=== PATIENT | male | born 1935 | race Caucasian/White ===

== ENCOUNTER 2017-01-16 07:16 | Emergency (ER) | payer OTHER ==
[~2017-01-16] VITALS: Ht 182.9 cm; Wt 93.2 kg
[2017-01-16 08:25] LABS: BASOPHIL COUNT 0.1 K/uL (0-0.1); EOSINOPHIL COUNT 0.1 K/uL (0-0.3); HEMATOCRIT 37.3 % (38.0-50.0); IMMATURE GRANULOCYTE (%) 0.5 % (0.0-0.7); IMMATURE GRANULOCYTE COUNT 0.1 K/uL; LYMPHOCYTE COUNT 1.6 K/uL (1.0-2.8); MCH 29.9 PG (29.0-34.0); MCHC 32.2 G/DL (30.0-36.0); MCV 92.8 FL (86-99); MEAN PLAT.VOLUME 10.3 uM^3 (9.0-12.4); MONOCYTE (%) 7.6 % (3-12); MONOCYTE COUNT 0.8 K/uL (0-0.8); NEUTROPHIL (%) 75.7 % (45-76); PLATELET COUNT 224 K/uL (156-360); RBC DIS.WIDTH-CV 14.4 % (11.8-14.6); RBC DIS.WIDTH-SD 49.3 % (39-53); RED BLOOD COUNT 4.02 M/uL (4.00-5.50); WHITE BLOOD COUNT 10.5 K/uL (4.1-10.2)
[2017-01-16 08:36] LABS: PTT 51.4 SEC (25-37)
[2017-01-16 08:40] LABS: PROTHROMBIN TIME 54.7 SEC (10.2-12.9)
[2017-01-16 08:41] LABS: INTER. NORMALIZED RATIO 4.7
[2017-01-16 08:46] LABS: TROP-I INTERPRETATION NEGATIVE; TROPONIN-I < 0.01 ng/mL (0.0-0.30)
[2017-01-16 08:49] LABS: CHLORIDE 109 mEq/L (99-109); SODIUM 141 mEq/L (136-147)
[2017-01-16 08:50] LABS: GLUCOSE 221 mg/dL (70-99)
[2017-01-16 08:52] LABS: ANION GAP 9 MEQ/L (2-14)
[2017-01-16 08:54] LABS: GFR ESTIMATE (CALCULATED) 20 mL/min/
[2017-01-16 08:55] LABS: UREA NITROGEN (BUN) 44 mg/dL (9-23)
[2017-01-16 12:08] LABS: TROP-I INTERPRETATION NEGATIVE; TROPONIN-I < 0.01 ng/mL (0.0-0.30)
[2017-01-16 13:16] VITALS: BP 112/80
== END 2017-01-16 13:42 | disposition home or self-care (01) ==
LOC: EME 07:16
PROVIDERS: Emergency Medicine
DX: J90 Pleural effusion, not elsewhere classified (principal); J44.1 Chronic obstructive pulmonary disease with (acute) exacerbation; E11.9 Type 2 diabetes mellitus without complications; E78.5 Hyperlipidemia, unspecified; I10 Essential (primary) hypertension; I25.2 Old myocardial infarction; N28.9 Disorder of kidney and ureter, unspecified
CPT/HCPCS: 71010; 71250; 80048; 84484; 85025; 85610; 85730; 93005; 99281; 99284

== ENCOUNTER 2017-05-14 02:17 | Inpatient (IN) | payer OTHER ==
[~2017-05-14] VITALS: Ht 182.9 cm; Wt 82.7 kg
[2017-05-14 02:54] LABS: BASOPHIL COUNT 0.1 K/uL (0-0.1); EOSINOPHIL (%) 1.3 % (0-5); EOSINOPHIL COUNT 0.1 K/uL (0-0.3); HEMATOCRIT 34.8 % (38.0-50.0); IMMATURE GRANULOCYTE (%) 0.5 % (0.0-0.7); INSTRUMENT ABS NEUTROPHIL CT 5.9 K/uL; LYMPHOCYTE COUNT 0.8 K/uL (1.0-2.8); MCHC 31.3 G/DL (30.0-36.0); MCV 83.1 FL (86-99); MEAN PLAT.VOLUME 9.7 uM^3 (9.0-12.4); MONOCYTE (%) 8.7 % (3-12); MONOCYTE COUNT 0.7 K/uL (0-0.8); NEUTROPHIL (%) 77.9 % (45-76); NEUTROPHIL COUNT 5.9 K/uL (1.8-6.4); NRBC (%) 0.3 /100 WBC (0-0); PLATELET COUNT 165 K/uL (156-360); RBC DIS.WIDTH-SD 59.4 % (39-53); RED BLOOD COUNT 4.19 M/uL (4.00-5.50); WHITE BLOOD COUNT 7.6 K/uL (4.1-10.2)
[2017-05-14 03:09] LABS: INTER. NORMALIZED RATIO 4.1; PROTHROMBIN TIME 46.6 SEC (10.2-12.9)
[2017-05-14 03:11] LABS: CHLORIDE 108 mEq/L (99-109); POTASSIUM 5.1 mEq/L (3.7-5.4); SODIUM 141 mEq/L (136-147)
[2017-05-14 03:12] LABS: MAGNESIUM 1.5 mg/dL (1.3-2.7); PTT 44.5 SEC (25-37)
[2017-05-14 03:14] LABS: GLUCOSE 148 mg/dL (70-99)
[2017-05-14 03:15] LABS: ANION GAP 17 MEQ/L (2-14)
[2017-05-14 03:17] LABS: ALKALINE PHOSPHATASE 219 IU/L (3-129)
[2017-05-14 03:18] LABS: GFR ESTIMATE (CALCULATED) 11 mL/min/
[2017-05-14 03:19] LABS: UREA NITROGEN (BUN) 85 mg/dL (9-23)
[2017-05-14 03:27] LABS: TROP-I INTERPRETATION NEGATIVE; TROPONIN-I 0.04 ng/mL (0.0-0.30)
[2017-05-14] MEDS ORDERED: COUMADIN1 MG PO (06:07)
[2017-05-14] MEDS ORDERED: VITAMIN B COMP1 EACH PO (06:08)
[2017-05-14] MEDS ORDERED: FOLIC ACID1 MG PO (06:08)
[2017-05-14 09:44] LABS: MAGNESIUM 1.7 mg/dL (1.3-2.7)
[2017-05-14 09:51] LABS: URIC ACID 9.3 mg/dL (3.1-9.2)
[2017-05-14 10:22] LABS: Estimated Average Glucose 154 mg/dL (70-123)
[2017-05-14] MEDS ORDERED: FUROSEMIDE40 MG PO (11:45)
[2017-05-14] MEDS ORDERED: METOPROLOL SUC100 MG PO (11:53)
[2017-05-14 18:45] LABS: POINT-OF-CARE METER ID UU14100415
[2017-05-14 19:35] VITALS: BP 86/68
[2017-05-14 20:39] VITALS: BP 103/57
[2017-05-14 21:22] LABS: POINT-OF-CARE METER ID UU14100415
[2017-05-14 23:09] VITALS: BP 97/59
[2017-05-15 01:41] VITALS: BP 98/58
[2017-05-15 04:00] VITALS: BP 91/56
[2017-05-15 05:49] LABS: INTER. NORMALIZED RATIO 4.1; PROTHROMBIN TIME 47.3 SEC (10.2-12.9)
[2017-05-15 07:20] VITALS: BP 94/60
[2017-05-15 07:27] LABS: ANION GAP ND MEQ/L (2-14); CHLORIDE 106 MEQ/L (99-109); POTASSIUM 4.3 MEQ/L (3.7-5.4); SAMPLE HEMOLYSIS CHECK 0; SAMPLE ICTERIC CHECK 0; SAMPLE LIPEMIA CHECK 0; SODIUM 137 MEQ/L (136-147); UREA NITROGEN (BUN) 85 mg/dL (9-23)
[2017-05-15 07:28] LABS: GLUCOSE 101 mg/dL (70-99)
[2017-05-15 08:05] LABS: GFR ESTIMATE (CALCULATED) 13 mL/min/
[2017-05-15 08:23] LABS: POINT-OF-CARE METER ID UU14174216
[2017-05-15 11:39] VITALS: BP 85/55
[2017-05-15 11:52] LABS: POINT-OF-CARE METER ID UU14174216
[2017-05-15 16:31] LABS: POINT-OF-CARE METER ID UU13113698
[2017-05-15 17:07] VITALS: BP 91/57
[2017-05-15 20:21] VITALS: BP 92/59
[2017-05-15 21:20] LABS: POINT-OF-CARE METER ID UU14314088
[2017-05-16] VITALS (8 sets, daily range): BP systolic 86–166; BP diastolic 57–89
[2017-05-16 06:08] LABS: ANION GAP 12 MEQ/L (2-14); CHLORIDE 107 MEQ/L (99-109); GFR ESTIMATE (CALCULATED) 12 mL/min/; GLUCOSE 109 mg/dL (70-99); POTASSIUM 4.7 MEQ/L (3.7-5.4); SAMPLE HEMOLYSIS CHECK 0; SAMPLE ICTERIC CHECK 0; SAMPLE LIPEMIA CHECK 0; SODIUM 137 MEQ/L (136-147); UREA NITROGEN (BUN) 84 mg/dL (9-23)
[2017-05-16 08:00] LABS: POINT-OF-CARE METER ID UU13113698
[2017-05-16 11:25] LABS: POINT-OF-CARE METER ID UU13113781
[2017-05-16 16:51] LABS: POINT-OF-CARE METER ID UU14314088
[2017-05-16 22:06] LABS: POINT-OF-CARE METER ID UU14314088
[2017-05-17] VITALS (7 sets, daily range): BP systolic 71–101; BP diastolic 58–64
[2017-05-17 04:56] LABS: INTER. NORMALIZED RATIO 2.5; PROTHROMBIN TIME 27.9 SEC (10.2-12.9)
[2017-05-17 05:12] LABS: ANION GAP 14 MEQ/L (2-14); CHLORIDE 105 MEQ/L (99-109); GFR ESTIMATE (CALCULATED) 11 mL/min/; GLUCOSE 114 mg/dL (70-99); IRON 18 MCG/DL (35-150); POTASSIUM 4.6 MEQ/L (3.7-5.4); SAMPLE HEMOLYSIS CHECK 0; SAMPLE ICTERIC CHECK 0; SAMPLE LIPEMIA CHECK 0; SODIUM 135 MEQ/L (136-147); UREA NITROGEN (BUN) 87 mg/dL (9-23)
[2017-05-17 08:03] LABS: POINT-OF-CARE METER ID UU14174216
[2017-05-17 09:03] LABS: INTACT PARATHYROID HORMONE 138 pg/mL (10-69)
[2017-05-17 09:20] LABS: FERRITIN 54 NG/ML (22-322)
[2017-05-17 11:52] LABS: POINT-OF-CARE METER ID UU14314088
[2017-05-17 16:20] LABS: POINT-OF-CARE METER ID UU13113698
[2017-05-17 16:38] LABS: ADD MIUA? YES; BILIRUBIN NEGATIVE; BLOOD NEGATIVE; COLOR AMBER ((YELLOW)); GLUCOSE (STRIP) NEGATIVE; KETONES NEGATIVE; LEUKOCYTES NEGATIVE; NITRITE NEGATIVE; PROTEIN (STRIP) 100; SPECIFIC GRAVITY 1.016 (1.000-1.030)
[2017-05-17 16:50] LABS: BACTERIA NONE SEEN /HPF; EPITHELIAL CELLS NONE SEEN /HPF; MUCUS TRACE /LPF; RED BLOOD CELLS 0-5 /HPF (0-5); UCUL ADDED? NO; WHITE BLOOD CELLS 0-5 /HPF (0-5)
[2017-05-17 21:42] LABS: POINT-OF-CARE METER ID UU13113698
[2017-05-18 04:00] VITALS: BP 95/50
[2017-05-18 05:26] LABS: BASOPHIL COUNT 0.1 K/uL (0-0.1); EOSINOPHIL (%) 2.6 % (0-5); EOSINOPHIL COUNT 0.2 K/uL (0-0.3); HEMATOCRIT 31.1 % (38.0-50.0); IMMATURE GRANULOCYTE (%) 0.6 % (0.0-0.7); LYMPHOCYTE COUNT 1.5 K/uL (1.0-2.8); MCH 25.5 PG (29.0-34.0); MCHC 30.9 G/DL (30.0-36.0); MCV 82.5 FL (86-99); MEAN PLAT.VOLUME 10.7 uM^3 (9.0-12.4); MONOCYTE (%) 10.2 % (3-12); MONOCYTE COUNT 0.7 K/uL (0-0.8); NEUTROPHIL (%) 62.6 % (45-76); NRBC (%) 0.3 /100 WBC (0-0); PLATELET COUNT 148 K/uL (156-360); RBC DIS.WIDTH-CV 19.4 % (11.8-14.6); RBC DIS.WIDTH-SD 58.4 % (39-53); RED BLOOD COUNT 3.77 M/uL (4.00-5.50); WHITE BLOOD COUNT 6.4 K/uL (4.1-10.2)
[2017-05-18 05:32] LABS: INTER. NORMALIZED RATIO 2.4; PROTHROMBIN TIME 27.8 SEC (10.2-12.9)
[2017-05-18 06:02] LABS: ALKALINE PHOSPHATASE 200 IU/L (3-129); ANION GAP 14 MEQ/L (2-14); CHLORIDE 102 MEQ/L (99-109); GFR ESTIMATE (CALCULATED) 11 mL/min/; GLUCOSE 104 mg/dL (70-99); POTASSIUM 4.8 MEQ/L (3.7-5.4); SAMPLE HEMOLYSIS CHECK 0; SAMPLE ICTERIC CHECK 0; SAMPLE LIPEMIA CHECK 0; SODIUM 135 MEQ/L (136-147); UREA NITROGEN (BUN) 98 mg/dL (9-23)
[2017-05-18 07:10] VITALS: BP 91/63
[2017-05-18 07:26] LABS: POINT-OF-CARE METER ID UU14174216
[2017-05-18 11:09] LABS: POINT-OF-CARE METER ID UU13113698
[2017-05-18 11:11] VITALS: BP 80/59
[2017-05-18 15:15] VITALS: BP 82/60
[2017-05-18 16:48] LABS: POINT-OF-CARE METER ID UU13113698
[2017-05-18 19:00] VITALS: BP 82/50
[2017-05-18 21:05] LABS: POINT-OF-CARE METER ID UU14174216
[2017-05-18 23:00] VITALS: BP 90/62
[2017-05-19] VITALS (7 sets, daily range): BP systolic 82–100; BP diastolic 50–66
[2017-05-19 06:04] LABS: BASOPHIL COUNT 0.1 K/uL (0-0.1); EOSINOPHIL (%) 3.5 % (0-5); EOSINOPHIL COUNT 0.2 K/uL (0-0.3); HEMATOCRIT 31.5 % (38.0-50.0); IMMATURE GRANULOCYTE (%) 0.5 % (0.0-0.7); INSTRUMENT ABS NEUTROPHIL CT 4.2 K/uL; LYMPHOCYTE COUNT 1.2 K/uL (1.0-2.8); MCH 25.7 PG (29.0-34.0); MCHC 31.1 G/DL (30.0-36.0); MCV 82.5 FL (86-99); MEAN PLAT.VOLUME 9.6 uM^3 (9.0-12.4); MONOCYTE COUNT 0.6 K/uL (0-0.8); NEUTROPHIL COUNT 4.2 K/uL (1.8-6.4); NRBC (%) 0.3 /100 WBC (0-0); PLATELET COUNT 140 K/uL (156-360); RBC DIS.WIDTH-CV 19.4 % (11.8-14.6); RBC DIS.WIDTH-SD 57.3 % (39-53); RED BLOOD COUNT 3.82 M/uL (4.00-5.50); WHITE BLOOD COUNT 6.3 K/uL (4.1-10.2)
[2017-05-19 06:43] LABS: ALKALINE PHOSPHATASE 196 IU/L (3-129); ANION GAP 13 MEQ/L (2-14); CHLORIDE 103 MEQ/L (99-109); GFR ESTIMATE (CALCULATED) 12 mL/min/; GLUCOSE 114 mg/dL (70-99); POTASSIUM 4.7 MEQ/L (3.7-5.4); SAMPLE HEMOLYSIS CHECK 0; SAMPLE ICTERIC CHECK 0; SAMPLE LIPEMIA CHECK 0; SODIUM 134 MEQ/L (136-147); TOTAL BILIRUBIN 0.9 MG/DL (0.0-1.0)
[2017-05-19 06:53] LABS: INTER. NORMALIZED RATIO 2.6; PROTHROMBIN TIME 29.7 SEC (10.2-12.9)
[2017-05-19 06:56] LABS: UREA NITROGEN (BUN) 105 mg/dL (9-23)
[2017-05-19 08:15] LABS: POINT-OF-CARE METER ID UU13113781
[2017-05-19 11:28] LABS: POINT-OF-CARE METER ID UU13113781
[2017-05-19 15:46] LABS: POINT-OF-CARE METER ID UU13113781
[2017-05-19 18:19] LABS: INTERNAL CONTROL VALID? YES
[2017-05-19 21:05] LABS: POINT-OF-CARE METER ID UU14174216
[2017-05-20] VITALS (8 sets, daily range): BP systolic 76–91; BP diastolic 50–60
[2017-05-20 06:15] LABS: INTER. NORMALIZED RATIO 2.2
[2017-05-20 06:19] LABS: EOSINOPHIL (%) 4.4 % (0-5); EOSINOPHIL COUNT 0.3 K/uL (0-0.3); HEMATOCRIT 30.8 % (38.0-50.0); IMMATURE GRANULOCYTE (%) 0.3 % (0.0-0.7); INSTRUMENT ABS NEUTROPHIL CT 3.8 K/uL; LYMPHOCYTE COUNT 1.1 K/uL (1.0-2.8); MCH 25.1 PG (29.0-34.0); MCHC 30.5 G/DL (30.0-36.0); MCV 82.4 FL (86-99); MEAN PLAT.VOLUME 10.9 uM^3 (9.0-12.4); MONOCYTE (%) 11.5 % (3-12); MONOCYTE COUNT 0.7 K/uL (0-0.8); NEUTROPHIL (%) 64.6 % (45-76); NEUTROPHIL COUNT 3.8 K/uL (1.8-6.4); PLATELET COUNT 167 K/uL (156-360); RBC DIS.WIDTH-CV 19.4 % (11.8-14.6); RBC DIS.WIDTH-SD 57.7 % (39-53); RED BLOOD COUNT 3.74 M/uL (4.00-5.50); WHITE BLOOD COUNT 5.9 K/uL (4.1-10.2)
[2017-05-20 06:37] LABS: ALKALINE PHOSPHATASE 191 IU/L (3-129); ANION GAP 11 MEQ/L (2-14); CHLORIDE 104 MEQ/L (99-109); GFR ESTIMATE (CALCULATED) 12 mL/min/ (58.99-99999); GLUCOSE 101 mg/dL (70-99); POTASSIUM 4.5 MEQ/L (3.7-5.4); SAMPLE HEMOLYSIS CHECK 0; SAMPLE ICTERIC CHECK 0; SAMPLE LIPEMIA CHECK 0; SODIUM 136 MEQ/L (136-147); UREA NITROGEN (BUN) 100 mg/dL (9-23)
[2017-05-20 08:03] LABS: POINT-OF-CARE METER ID UU14174216
[2017-05-20 10:57] LABS: POINT-OF-CARE METER ID UU14174216
[2017-05-20 16:10] LABS: POINT-OF-CARE METER ID UU14174216
[2017-05-20 21:08] LABS: POINT-OF-CARE METER ID UU13113781
[2017-05-21 04:23] VITALS: BP 87/54
[2017-05-21 05:47] LABS: EOSINOPHIL (%) 3.9 % (0-5); EOSINOPHIL COUNT 0.2 K/uL (0-0.3); HEMATOCRIT 30.6 % (38.0-50.0); IMMATURE GRANULOCYTE (%) 0.5 % (0.0-0.7); INSTRUMENT ABS NEUTROPHIL CT 3.5 K/uL; LYMPHOCYTE COUNT 1.2 K/uL (1.0-2.8); MCH 25.9 PG (29.0-34.0); MCHC 31.4 G/DL (30.0-36.0); MCV 82.5 FL (86-99); MEAN PLAT.VOLUME 9.4 uM^3 (9.0-12.4); MONOCYTE (%) 11.9 % (3-12); MONOCYTE COUNT 0.7 K/uL (0-0.8); NEUTROPHIL (%) 62.5 % (45-76); NEUTROPHIL COUNT 3.5 K/uL (1.8-6.4); NRBC (%) 0.4 /100 WBC (0-0); PLATELET COUNT 147 K/uL (156-360); RBC DIS.WIDTH-CV 19.9 % (11.8-14.6); RBC DIS.WIDTH-SD 57.8 % (39-53); RED BLOOD COUNT 3.71 M/uL (4.00-5.50); WHITE BLOOD COUNT 5.6 K/uL (4.1-10.2)
[2017-05-21 05:55] LABS: INTER. NORMALIZED RATIO 1.8; PROTHROMBIN TIME 20.6 SEC (10.2-12.9)
[2017-05-21 06:29] LABS: ALKALINE PHOSPHATASE 190 IU/L (3-129); ANION GAP 12 MEQ/L (2-14); CHLORIDE 104 MEQ/L (99-109); GFR ESTIMATE (CALCULATED) 12 mL/min/ (58.99-99999); GLUCOSE 102 mg/dL (70-99); POTASSIUM 4.6 MEQ/L (3.7-5.4); SAMPLE HEMOLYSIS CHECK 0; SAMPLE ICTERIC CHECK 0; SAMPLE LIPEMIA CHECK 0; SODIUM 137 MEQ/L (136-147); TOTAL BILIRUBIN 1.3 MG/DL (0.0-1.0); UREA NITROGEN (BUN) 99 mg/dL (9-23)
[2017-05-21 08:00] VITALS: BP 98/59
[2017-05-21 08:31] LABS: POINT-OF-CARE METER ID UU14174216; POINT-OF-CARE USER ID NUTSLF44
[2017-05-21 12:25] VITALS: BP 96/56
[2017-05-21 12:59] LABS: POINT-OF-CARE METER ID UU14314088; POINT-OF-CARE USER ID NUTSLF44
[2017-05-21 15:43] VITALS: BP 87/51
[2017-05-21 17:46] LABS: POINT-OF-CARE METER ID UU14314088; POINT-OF-CARE USER ID NUTSLF44
[2017-05-21 19:27] VITALS: BP 97/52
[2017-05-21 21:45] LABS: POINT-OF-CARE METER ID UU13113698
[2017-05-21 23:57] VITALS: BP 97/61
[2017-05-22 05:00] VITALS: BP 90/54
[2017-05-22 06:07] LABS: INTER. NORMALIZED RATIO 1.5; PROTHROMBIN TIME 17.4 SEC (10.2-12.9)
[2017-05-22 06:21] LABS: ANION GAP 12 MEQ/L (2-14); CHLORIDE 102 MEQ/L (99-109); GFR ESTIMATE (CALCULATED) 14 mL/min/ (58.99-99999); GLUCOSE 92 mg/dL (70-99); POTASSIUM 4.6 MEQ/L (3.7-5.4); SAMPLE HEMOLYSIS CHECK 0; SAMPLE ICTERIC CHECK 0; SAMPLE LIPEMIA CHECK 0; SODIUM 135 MEQ/L (136-147); UREA NITROGEN (BUN) 101 mg/dL (9-23)
[2017-05-22 07:47] LABS: POINT-OF-CARE METER ID UU13113781
[2017-05-22 08:00] VITALS: BP 107/70
[2017-05-22 11:50] LABS: POINT-OF-CARE METER ID UU14314088
[2017-05-22 11:56] VITALS: BP 85/52
[2017-05-22 16:15] VITALS: BP 88/52
[2017-05-22 16:43] LABS: POINT-OF-CARE METER ID UU14174216
[2017-05-22 19:45] VITALS: BP 83/53
[2017-05-22 21:19] LABS: POINT-OF-CARE METER ID UU14174216
[2017-05-22 23:36] VITALS: BP 95/64
[2017-05-23 04:46] VITALS: BP 99/68
[2017-05-23 06:15] LABS: HEMATOCRIT 32.1 % (38.0-50.0); MCH 25.4 PG (29.0-34.0); MCHC 30.5 G/DL (30.0-36.0); MCV 83.2 FL (86-99); MEAN PLAT.VOLUME 9.6 uM^3 (9.0-12.4); NRBC (%) 0.3 /100 WBC (0-0); PLATELET COUNT 134 K/uL (156-360); RBC DIS.WIDTH-CV 20.6 % (11.8-14.6); RBC DIS.WIDTH-SD 58.1 % (39-53); RED BLOOD COUNT 3.86 M/uL (4.00-5.50); WHITE BLOOD COUNT 6.3 K/uL (4.1-10.2)
[2017-05-23 06:47] LABS: ALKALINE PHOSPHATASE 174 IU/L (3-129); ANION GAP 11 MEQ/L (2-14); CHLORIDE 102 MEQ/L (99-109); GFR ESTIMATE (CALCULATED) 14 mL/min/ (58.99-99999); GLUCOSE 105 mg/dL (70-99); POTASSIUM 4.8 MEQ/L (3.7-5.4); SAMPLE HEMOLYSIS CHECK 0; SAMPLE ICTERIC CHECK 0; SAMPLE LIPEMIA CHECK 0; SODIUM 136 MEQ/L (136-147); TOTAL BILIRUBIN 1.3 MG/DL (0.0-1.0); UREA NITROGEN (BUN) 99 mg/dL (9-23)
[2017-05-23 06:48] LABS: INTER. NORMALIZED RATIO 1.5; PROTHROMBIN TIME 16.8 SEC (10.2-12.9)
[2017-05-23 06:58] LABS: BASOPHIL COUNT 0.1 K/uL (0-0.1); EOSINOPHIL (%) 3.5 % (0-5); EOSINOPHIL COUNT 0.2 K/uL (0-0.3); IMMATURE GRANULOCYTE (%) 0.5 % (0.0-0.7); INSTRUMENT ABS NEUTROPHIL CT 3.9 K/uL; LYMPHOCYTE COUNT 1.3 K/uL (1.0-2.8); MONOCYTE (%) 12.3 % (3-12); MONOCYTE COUNT 0.8 K/uL (0-0.8); NEUTROPHIL (%) 61.7 % (45-76); NEUTROPHIL COUNT 3.9 K/uL (1.8-6.4)
[2017-05-23 08:00] VITALS: BP 93/61
[2017-05-23 11:54] LABS: POINT-OF-CARE METER ID UU13113781
[2017-05-23 11:55] VITALS: BP 88/58
[2017-05-23] MEDS ORDERED: DUONEB 2.5-0.5 M3 ML AEROSOL (12:30)
[2017-05-23] MEDS ORDERED: NABI650T PO (12:32)
[2017-05-23] MEDS ORDERED: METOPROLOL SUCC25 MG PO (12:32)
[2017-05-23] MEDS ORDERED: BUMETANIDE1 MG PO (12:32)
[2017-05-23] MEDS ORDERED: DIGOXIN125 MCG PO (12:32)
[2017-05-23] MEDS ORDERED: HYDROCODON-ACE1 EAC7 PO (12:32)
[2017-05-23] MEDS ORDERED: DOCUSATE SODIU100 MG PO (12:33)
[2017-05-23] MEDS ORDERED: BISAC-EVAC10 MG PR (12:33)
[2017-05-23] MEDS ORDERED: NOVOLOG PE100 UNITS/ SC (12:33)
[2017-05-23] MEDS ORDERED: POLYETHYLENE GL17 GM PO (12:33)
[2017-05-23] MEDS ORDERED: PANTOPRAZOLE SO40 MG PO (12:33)
== END 2017-05-23 16:45 | DRG 309 ==
LOC: EME 02:17 → EDOF 07:59 → ENRESERV 08:00 → EDOF 08:03 → 4EAST 08:26 → ENRESERV 05-15 00:13 → 4EAST 05-15 01:02 → ENPENDDIS 05-23 → 4EAST 05-23 16:45
PROVIDERS: Emergency Medicine; Family Medicine; Hospitalist; Internal Medicine; Internal Medicine Nephrology
PROC: 0HQEXZZ Repair Left Lower Arm Skin, External Approach (ICD-10-PCS; principal; 2017-05-14)
DX: I48.1 Persistent atrial fibrillation (principal); N18.5 Chronic kidney disease, stage 5; I12.0 Hypertensive chronic kidney disease with stage 5 chronic kidney disease or end stage renal disease; N17.9 Acute kidney failure, unspecified; E87.2 Acidosis; I13.2 Hypertensive heart and chronic kidney disease with heart failure and with stage 5 chronic kidney disease, or end stage renal disease; K43.6 Other and unspecified ventral hernia with obstruction, without gangrene; D63.1 Anemia in chronic kidney disease; S51.812A Laceration without foreign body of left forearm, initial encounter; W01.198A Fall on same level from slipping, tripping and stumbling with subsequent striking against other object, initial encounter; D50.9 Iron deficiency anemia, unspecified; E11.22 Type 2 diabetes mellitus with diabetic chronic kidney disease; E78.5 Hyperlipidemia, unspecified; I25.10 Atherosclerotic heart disease of native coronary artery without angina pectoris; I25.5 Ischemic cardiomyopathy; I44.7 Left bundle-branch block, unspecified; I50.9 Heart failure, unspecified; K59.00 Constipation, unspecified; R79.1 Abnormal coagulation profile; T45.515A Adverse effect of anticoagulants, initial encounter; Z60.2 Problems related to living alone; H91.90 Unspecified hearing loss, unspecified ear; L89.320 Pressure ulcer of left buttock, unstageable; L89.310 Pressure ulcer of right buttock, unstageable; M53.3 Sacrococcygeal disorders, not elsewhere classified; I95.9 Hypotension, unspecified; R21 Rash and other nonspecific skin eruption; E87.79 Other fluid overload; Z95.810 Presence of automatic (implantable) cardiac defibrillator; Z95.1 Presence of aortocoronary bypass graft; Z87.891 Personal history of nicotine dependence; Z79.01 Long term (current) use of anticoagulants; Y93.E8 Activity, other personal hygiene; Y92.091 Bathroom in other non-institutional residence as the place of occurrence of the external cause; Z88.0 Allergy status to penicillin; Z82.49 Family history of ischemic heart disease and other diseases of the circulatory system
CPT/HCPCS: 71010; 80048; 80053; 80069; 80162; 81003; 82272; 82306; 82607; 82728; 82746; 82948; 83036; 83540; 83735; 83970; 84100; 84439; 84443; 84466; 84481; 84484; 84550; 85025; 85610; 85730; 87070; 87075; 87076; 87205; 93005; 93306; 97530 GP; 99202; 99281; 99285; A6212; J1160; J1756; J1815; J7040; J7050

== ENCOUNTER 2017-06-05 12:34 | Emergency (ER) | payer OTHER ==
[~2017-06-05] VITALS: Ht 182.9 cm; Wt 90.1 kg
[~2017-06-05 12:34] MED LIST: BISAC-EVAC10 MG PR; BUMETANIDE1 MG PO; COUMADIN1 MG PO; DIGOXIN125 MCG PO; DOCUSATE SODIU100 MG PO; DUONEB 2.5-0.5 M3 ML AEROSOL; FOLIC ACID1 MG PO; FUROSEMIDE40 MG PO; HYDROCODON-ACE1 EAC7 PO; METOPROLOL SUC100 MG PO; METOPROLOL SUCC25 MG PO; NABI650T PO; NOVOLOG PE100 UNITS/ SC; PANTOPRAZOLE SO40 MG PO; POLYETHYLENE GL17 GM PO; VITAMIN B COMP1 EACH PO
[2017-06-05] MEDS ORDERED: BACTRIM,SEPT1 TABLET PO (16:17)
[2017-06-05 18:37] VITALS: BP 129/78
== END 2017-06-05 18:37 ==
LOC: EME 12:34
DX: L03.114 Cellulitis of left upper limb (principal); R60.0 Localized edema; E78.5 Hyperlipidemia, unspecified; I10 Essential (primary) hypertension; I25.2 Old myocardial infarction; N28.9 Disorder of kidney and ureter, unspecified; Z95.1 Presence of aortocoronary bypass graft; Z87.891 Personal history of nicotine dependence; Z88.0 Allergy status to penicillin; Z88.1 Allergy status to other antibiotic agents
CPT/HCPCS: 93971; 99281; 99285

== ENCOUNTER 2017-06-10 02:42 | Emergency (ER) | payer OTHER ==
[~2017-06-10] VITALS: Ht 182.9 cm; Wt 88.1 kg
[~2017-06-10 02:42] MED LIST changes: +BACTRIM,SEPT1 TABLET PO
[2017-06-10 07:45] VITALS: BP 128/65
== END 2017-06-10 07:45 ==
LOC: EME → EDSEX 02:42 → EME 02:42 → EDBD 02:42 → EME 07:45
PROC: 0HQDXZZ Repair Right Lower Arm Skin, External Approach (ICD-10-PCS; principal; 2017-06-10)
DX: S01.81XA Laceration without foreign body of other part of head, initial encounter (principal); S51.811A Laceration without foreign body of right forearm, initial encounter; J90 Pleural effusion, not elsewhere classified; W05.0XXA Fall from non-moving wheelchair, initial encounter; Z79.01 Long term (current) use of anticoagulants; E78.5 Hyperlipidemia, unspecified; I25.2 Old myocardial infarction; I10 Essential (primary) hypertension; Z86.19 Personal history of other infectious and parasitic diseases; Z95.1 Presence of aortocoronary bypass graft; Z95.0 Presence of cardiac pacemaker; Z88.0 Allergy status to penicillin; Z87.891 Personal history of nicotine dependence
CPT/HCPCS: 70450; 72125; 73080; 99281; 99284